=== PATIENT | female | born 1990 | race Caucasian/White ===

== ENCOUNTER 2019-02-06 20:40 | Emergency (ER) | payer MEDICAID, OTHER ==
[~2019-02-06] VITALS: Ht 154.9 cm; Wt 96.6 kg
--- OUTSIDE RECORDS SUMMARY | 2019-02-06 20:45 | XMS REPORT | CCD ---
Author Author TY JOHNSTON Organization Unknown Address [address] [place] [phone] Care Team Providers Care Sales And Marketing Engineer Name Role Phone MURRAY, SHELLEY DO Attphys MURRAYKATIASHELLEY DO Prisurg Vital Signs Unknown or Not Available. Allergies Allergy Code Allergy Type Reaction Status No Known Drug Allergies 0 No known drug allergies Active Procedures Procedure Code Procedure Type Date CX CHEST [address] 02/10/2016 [address]RE[address]EN 8937[address]63 SNOM[address] 02/10/[address] 02/10/2016 COMPREHENSIVE METABOLIC PANEL 528080205 SNOMED CT 2015 CBC W/ AUTO DIFF (RFLX MAN DIFF IF IND) 8089511 SNOMED CT 02/10/2016 ^CBC W/ MANUAL DIFF 69974853 SNOMED CT 02/10/2016 History of Immunizations Immunization Code Date Tdap 115 05/22/2015 Problems Unknown or Not Available. Results COMPREHENSIVE METABOLIC PANEL - Collect Date/Time: 02/10/2016 15:05 Test Name Code Test Result Test Units Test Ref Range GLUCOSE 2345-7 92 MG/DL L=70 H=100 SODIUM 2951-2 138 MEQ/L L=135 H=148 POTASSIUM 2823-3 3.2 MEQ/L L=3.5 H=5.3 CHLORIDE 2075-0 104 MEQ/L L=96 H=110 CO2 2028-9 23 MEQ/L L=22 H=29 BUN 3094-0 12 MG/DL L=8 H=22 CREATININE 2160-0 0.7 MG/DL L=0.6 H=1.6 SGOT/AST 1920-8 9 IU/L L=10 H=40 SGPT/ALT 1742-6 11 IU/L L=8 H=54 ALK PHOS 6768-6 92 IU/L L=35 H=115 TOTAL PROTEIN 2885-2 8.0 G/DL L=5.5 H=8.5 ALBUMIN 1751-7 4.7 G/DL L=3.1 H=5.4 TOTAL BILI 1975-2 0.3 MG/DL L=0.0 H=1.5 CALCIUM 77992-7 9.5 MG/DL L=8.2 H=10.6 AGE 25 yrs GFR NonAA 102 GFR AA 124 eGFR >60 N/A eGFR AA* >60 N/A LIPASE - Collect Date/Time: 02/10/2016 15:05 Test Name Code Test Result Test Units Test Ref Range LIPASE 3040-3 11 U/L L=8 H=78 CBC W/ AUTO DIFF (RFLX MAN DIFF IF IND) - Collect Date/Time: 02/10/2016 15:05 Test Name Code Test Result Test Units Test Ref Range WBC 56585-3 13.8 TH/CMM L=4.5 H=10.8 RBC 789-8 4.84 ML/CMM L=4.20 H=5.40 HGB 718-7 11.1 G/DL L=12.0 H=16.0 HCT 4544-3 37.1 % L=37.0 H=47.0 MCV 77 FL L=81 H=99 MCH 22.9 PG L=27.0 H=33.0 MCHC 29.9 G/DL L=31.0 H=36.0 RDW SD 43 FL L=36 H=50 RDW CV 15.8 % L=0.0 H=14.8 MPV 10.6 FL L=9.3 H=12.5 PLT 777-3 175 TH/CMM L=130 H=440 NRBC# 0.00 TH/CMM L=0.00 H=0.00 NRBC% 0.0 /100WBC L=0.0 H=2.0 %NEUT 87.9 % %LYMP 5.5 % %MONO 5.4 % %EOS 0.4 % %BASO 0.4 % #NEUT 12.18 TH/CMM L=2.10 H=8.20 #LYMP 0.76 TH/CMM L=0.90 H=5.20 #MONO 0.74 TH/CMM L=0.16 H=1.00 #EOS 0.05 TH/CMM L=0.00 H=0.80 #BASO 0.05 TH/CMM L=0.00 H=0.20 SEGS 84 % BANDS 3 % LYMPHS 8 % MONOS 5 % MANUAL DIFF SEE BELOW N/A STREP SCREEN - Collect Date/Time: 02/10/2016 15:05 Test Name Code Test Result Test Units Test Ref Range STREP SCREEN 6556-5 POSITIVE N/A NORMAL: NEGATIVE Active Medications Medication Code Dose Units Frequency Route Modification Start Date/Time Vitamins Plus 1MG-27MG Oral Tablet 4413938 1 EACH DAILY ORAL 05/22/2015 08:16 Prescription Detail 1 EACH ORAL DAILY Zantac 150MG Oral Tablet 203050 150 MILLIGRAMS EVERY 12 HOURS ORAL 05/22/2015 08:16 Prescription Detail 150 MILLIGRAMS ORAL EVERY 12 HOURS Medications Administered During Visit Unknown or Not Available. Encounters Encounter Diagnosis Diagnosis Code Start Date Streptococcal sore throat [id number] 02/10/2016 Social History Smoking Status Code Start Date End Date Never smoker [id number] Patient Decision Aids Unknown or Not Available. Discharge Instructions You were admitted to [facility] on 02/10/2016 14:25 with a principal diagnosis of Streptococcal pharyngitis You had the following tests done: CBC W/ AUTO DIFF (RFLX MAN DIFF IF IND) COMPREHENSIVE METABOLIC PANEL LIPASE STREP SCREEN You were discharged from [facility] on 02/10/2016 16:53 Should you have any questions prior to discharge, please contact a member of your healthcare team. If you have left the hospital and have any questions, please contact your primary care physician. Chief Complaint and Reason For Visit Chief Complaint Date of Onset ABDOMINAL PAIN SIDE PAIN Function Status Unknown or Not Available. Plan of Care Unknown or Not Available. Referral/Transition of Care Unknown or Not Available.
--- OUTSIDE RECORDS SUMMARY | 2019-02-06 20:45 | XMS REPORT | CCD ---
Author Author NAKUL ACEVES Unknown Address [address] [place] [phone] Care Team Providers Care Service Unit Operator Oil Well Name Role Phone RAND ER, NAOMI DO Attphys COURTLAND ER, NAOMI DO Prisurg Vital Signs Unknown or Not Available. Allergies Allergy Code Allergy Type Reaction Status No Known Drug Allergies 0 No known drug allergies Active Procedures Procedure Code Procedure Type Date US OB COMP<14 WK SINGLE OR FIRST 204678416 SNOMED CT 02/17 BETA HCG QUANTITATIVE 574859169 SNOMED CT 02/18/2016 COMPREHENSIVE METABOLIC PANEL 341340576 SNOMED CT 2015 CBC W/ AUTO DIFF (RFLX MAN DIFF IF IND) 7855965 SNOMED CT 02/18/2016 UA W/MICRO C&S IF IND 394889919 SNOMED CT 02/18/2016 US OB TRANSVAGINAL 071304185 SNOMED CT 02/18/2016 ^CBC W/AUTO DIFF 3902733 SNOMED CT 02/18/2016 History of Immunizations Immunization Code Date Tdap 115 05/22/2015 Problems Unknown or Not Available. Results BETA HCG QUANTITATIVE - Collect Date/Time: 02/18/2016 18:30 Test Name Code Test Result Test Units Test Ref Range BETA HCG QUANT 60621-1 96822 MIU/ML COMPREHENSIVE METABOLIC PANEL - Collect Date/Time: 02/18/2016 18:30 Test Name Code Test Result Test Units Test Ref Range GLUCOSE 2345-7 103 MG/DL L=70 H=100 SODIUM 2951-2 141 MEQ/L L=135 H=148 POTASSIUM 2823-3 3.1 MEQ/L L=3.5 H=5.3 CHLORIDE 2075-0 105 MEQ/L L=96 H=110 CO2 2028-9 26 MEQ/L L=22 H=29 BUN 3094-0 10 MG/DL L=8 H=22 CREATININE 2160-0 0.7 MG/DL L=0.6 H=1.6 SGOT/AST 1920-8 17 IU/L L=10 H=40 SGPT/ALT 1742-6 34 IU/L L=8 H=54 ALK PHOS 6768-6 79 IU/L L=35 H=115 TOTAL PROTEIN 2885-2 7.2 G/DL L=5.5 H=8.5 ALBUMIN 1751-7 4.3 G/DL L=3.1 H=5.4 TOTAL BILI 1975-2 0.3 MG/DL L=0.0 H=1.5 CALCIUM 07755-5 9.3 MG/DL L=8.2 H=10.6 AGE 25 yrs GFR NonAA 102 GFR AA 124 eGFR >60 N/A eGFR AA* >60 N/A CBC W/ AUTO DIFF (RFLX MAN DIFF IF IND) - Collect Date/Time: 02/18/2016 18:30 Test Name Code Test Result Test Units Test Ref Range WBC 22297-9 14.1 TH/CMM L=4.5 H=10.8 RBC 789-8 4.46 ML/CMM L=4.20 H=5.40 HGB 718-7 10.3 G/DL L=12.0 H=16.0 HCT 4544-3 34.8 % L=37.0 H=47.0 MCV 78 FL L=81 H=99 MCH 23.1 PG L=27.0 H=33.0 MCHC 29.6 G/DL L=31.0 H=36.0 RDW SD 46 FL L=36 H=50 RDW CV 16.5 % L=0.0 H=14.8 MPV 10.3 FL L=9.3 H=12.5 PLT 777-3 192 TH/CMM L=130 H=440 NRBC# 0.00 TH/CMM L=0.00 H=0.00 NRBC% 0.0 /100WBC L=0.0 H=2.0 %NEUT 84.4 % %LYMP 8.3 % %MONO 5.4 % %EOS 1.0 % %BASO 0.3 % #NEUT 11.89 TH/CMM L=2.10 H=8.20 #LYMP 1.17 TH/CMM L=0.90 H=5.20 #MONO 0.76 TH/CMM L=0.16 H=1.00 #EOS 0.14 TH/CMM L=0.00 H=0.80 #BASO 0.04 TH/CMM L=0.00 H=0.20 MANUAL DIFF NOT IND N/A UA W/MICRO C&S IF IND - Collect Date/Time: 02/18/2016 19:20 Test Name Code Test Result Test Units Test Ref Range COLOR YELLOW N/A NL: YELLOW APPEARANCE CLEAR N/A NL: CLEAR SPEC GRAV 1.020 N/A NL: 1.002 - 1.022 pH 8.5 N/A NL: 5 - 9 PROTEIN 30 N/A NL: NEGATIVE mg/dl GLUCOSE NEGATIVE N/A NL: NEGATIVE mg/dl KETONE NEGATIVE N/A NL: NEGATIVE mg/dl BILIRUBIN NEGATIVE N/A NL: NEGATIVE BLOOD LARGE N/A NL: NEGATIVE NITRITE NEGATIVE N/A NL: NEGATIVE LEUK SCREEN NEGATIVE N/A NL: NEGATIVE WBC/HPF NEGATIVE N/A NL: NEGATIVE RBC/HPF 10-20 N/A NL: NEGATIVE CASTS/LPF NEGATIVE N/A NL: NEGATIVE CRYSTALS 2++ AMORPHOUS N/A NL: NEGATIVE MUCOUS THRDS NEGATIVE N/A NL: NEGATIVE BACTERIA NEGATIVE N/A NL: NEGATIVE EPITH CELLS 1+ SQUAMOUS N/A NL: NEGATIVE TRICHOMONAS NEGATIVE N/A NL: NEGATIVE YEAST NEGATIVE N/A NL: NEGATIVE CULT SET UP? NO N/A Active Medications Medication Code Dose Units Frequency Route Modification Start Date/Time Vitamins Plus 1MG-27MG Oral Tablet 7625272 1 EACH DAILY ORAL 05/22/2015 08:16 Prescription Detail 1 EACH ORAL DAILY Zantac 150MG Oral Tablet 575642 150 MILLIGRAMS EVERY 12 HOURS ORAL 05/22/2015 08:16 Prescription Detail 150 MILLIGRAMS ORAL EVERY 12 HOURS Medications Administered During Visit Unknown or Not Available. Encounters Encounter Diagnosis Diagnosis Code Start Date Antepartum hemorrhage [id number] 02/18/2016 Social History Smoking Status Code Start Date End Date Never smoker 443321293 Patient Decision Aids Unknown or Not Available. Discharge Instructions You were admitted to [facility] on 02/18/2016 18:03 with a principal diagnosis of Antepartum hemorrhage, unspecified, first trimester You had the following tests done: BETA HCG QUANTITATIVE CBC W/ AUTO DIFF (RFLX MAN DIFF IF IND) COMPREHENSIVE METABOLIC PANEL UA W/MICRO C&S IF IND You were discharged from [facility] on 02/18/2016 21:43 Should you have any questions prior to discharge, please contact a member of your healthcare team. If you have left the hospital and have any questions, please contact your primary care physician. Chief Complaint and Reason For Visit Chief Complaint Date of Onset VAGINAL BLEEDING AFTER FALL LESS THAN 12 WKS Function Status Unknown or Not Available. Plan of Care Unknown or Not Available. Referral/Transition of Care Unknown or Not Available.
--- OUTSIDE RECORDS SUMMARY | 2019-02-06 20:45 | XMS REPORT | Continuity of Care Document ---
Author Organization Unknown Address Unknown Allergies There is no data. Medications There is no data. Problems There is no data. Procedures There is no data. Results There is no data. Encounters ACCT No. Visit Date/Time Discharge Status Pt. Type Provider Facility Loc./Unit Complaint [id number] 01/17/2019 08:58:17 01/17/2019 23:59:59 CLS Outpatient Wallace Horton [id number] 01/12/2019 14:03:26 01/12/2019 23:59:59 CLS Outpatient Armando Pride [id number] 01/06/2019 11:17:43 01/06/2019 23:59:59 CLS Outpatient Armando Pride [id number] 12/29/2018 15:36:27 12/29/2018 23:59:59 CLS Outpatient Wallace Horton [id number] 12/29/2018 12:17:15 12/29/2018 23:59:59 CLS Outpatient Tosha Cook [id number] 12/21/2018 10:25:28 12/21/2018 23:59:59 CLS Outpatient Jeferson Timmons [id number] 12/21/2018 10:24:06 12/21/2018 23:59:59 CLS Outpatient Armando Pride [id number] 11/24/2018 12:02:57 11/24/2018 23:59:59 CLS Outpatient Armando Pride [id number] 11/10/2018 11:33:22 11/10/2018 23:59:59 CLS Outpatient Armando Pride [id number] 10/27/2018 09:58:52 10/27/2018 23:59:59 CLS Outpatient Armando Pride [id number] 10/14/2018 11:46:22 10/14/2018 23:59:59 CLS Outpatient Tosha Cook [id number] 09/23/2018 11:44:24 09/23/2018 23:59:59 CLS Outpatient Armando Pride [id number] 08/26/2018 11:41:34 08/26/2018 23:59:59 CLS Outpatient Armando Pride [id number] 07/22/2018 11:52:40 07/22/2018 23:59:59 CLS Outpatient Armando Pride [id number] 06/17/2018 12:03:14 06/17/2018 23:59:59 CLS Outpatient Tosha Cook [id number] 07/22/2017 16:34:39 07/22/2017 23:59:59 CLS Outpatient Ayan Rocha [id number] 07/16/2015 14:28:08 07/16/2015 23:59:59 CLS Outpatient Tosha Cook [id number] 07/12/2015 15:46:39 07/12/2015 23:59:59 CLS Outpatient Ayan Rocha [id number] 07/07/2015 13:50:33 07/07/2015 23:59:59 CLS Outpatient JAYLYN WILCOX [id number] 07/01/2015 14:32:57 07/01/2015 23:59:59 CLS Outpatient Dale Francisco [id number] 05/29/2015 15:02:16 05/29/2015 23:59:59 CLS Outpatient JAYLYN WILCOX [id number] 05/20/2015 22:33:24 05/20/2015 23:59:59 CLS Outpatient Donna Serna [id number] 05/20/2015 22:28:06 05/20/2015 23:59:59 CLS Outpatient Donna Serna [id number] 05/20/2015 22:26:45 05/20/2015 23:59:59 CLS Outpatient Donna Serna [id number] 05/20/2015 22:23:00 05/20/2015 23:59:59 CLS Outpatient Donna Serna [id number] 05/20/2015 22:13:16 05/20/2015 23:59:59 CLS Outpatient Spencer Castaneda [id number] 05/20/2015 22:04:14 05/20/2015 23:59:59 CLS Outpatient Spencer Castaneda [id number] 05/20/2015 21:55:43 05/20/2015 23:59:59 CLS Outpatient Spencer Castaneda [id number] 05/20/2015 21:35:25 05/20/2015 23:59:59 CLS Outpatient Spencer Castaneda [id number] 02/07/2015 14:16:25 02/07/2015 23:59:59 CLS Outpatient Donna Serna [id number] 01/10/2015 15:00:07 01/10/2015 23:59:59 CLS Outpatient Spencer Castaneda
[2019-02-06] MEDS ORDERED: SERT100T8 PO (20:55)
--- NOTE | 2019-02-06 21:26 | NUR ---
PT BROUGHT TO ROOM 9, PT ASKED TO PROVIDE URINE SAMPLE. UPON USING THE RESTROOM PT STATES SHE HAS SATURATED ANOTHER PAD, THIS MAKING FIVE TOTAL IN THE LAST THREE HOURS. PROVIDED NEW PADS AND DISPOSABLE UNDERWEAR. Addendum: 02/07/19 at 0115 by [id number] PT BROUGHT TO ROOM 9, PT ASKED TO PROVIDE URINE SAMPLE. UPON USING THE RESTROOM PT STATES SHE HAS SATURATED ANOTHER PAD, THIS MAKING FIVE TOTAL IN THE LAST THREE HOURS. PROVIDED NEW PADS AND DISPOSABLE UNDERWEAR. PROVIDER NOTIFIED
[2019-02-06] MEDS ORDERED: NS IV 1000 ML 1,000 ML IV ONE (21:38)
[2019-02-06 21:51] LABS: BASOPHILS % (AUTO) 0 % (0-10); EOSINOPHILS # (AUTO) 0.1 10^3/uL (0.0-0.3); EOSINOPHILS % (AUTO) 1 % (0-10); HEMATOCRIT 35 % (35-52); HEMOGLOBIN 10.7 G/DL (11.5-16.0); LYMPHOCYTES # (AUTO) 1.8 X 10^3 (1.0-4.0); LYMPHOCYTES % (AUTO) 23 % (12-44); MEAN CORPUSCULAR HEMOGLOBIN 23 PG (25-34); MEAN CORPUSCULAR HGB CONC 31 G/DL (32-36); MEAN CORPUSCULAR VOLUME 77 FL (80-99); MONOCYTES # (AUTO) 0.5 X 10^3 (0.0-1.0); MONOCYTES % (AUTO) 6 % (0-12); NEUTROPHILS # (AUTO) 5.7 X 10^3 (1.8-7.8); NEUTROPHILS % (AUTO) 70 % (42-75); PLATELET COUNT 287 10^3/uL (130-400); RED CELL DISTRIBUTION WIDTH 17.4 % (10.0-14.5); WHITE BLOOD COUNT 8.1 10^3/uL (4.3-11.0)
[2019-02-06 21:52] LABS: BILIRUBIN,URINE NEGATIVE (NEGATIVE); COLOR,URINE RED; GLUCOSE, URINE (UA) NEGATIVE (NEGATIVE); KETONES,URINE 1+ (NEGATIVE); LEUKOCYTE ESTERASE ,URINE 2+ (NEGATIVE); NITRITE,URINE POSITIVE (NEGATIVE); PH,URINE 6 (5-9); PROTEIN,URINE 3+ (NEGATIVE); UROBILINOGEN,URINE 1 MG/DL (NORMAL)
[2019-02-06 22:00] LABS: BACTERIA,URINE MODERATE /HPF; CLARITY,URINE BLOODY; RBC,URINE TNTC /HPF; WBC,URINE 25-50 /HPF
[2019-02-06 22:09] LABS: ALANINE AMINOTRANSFERASE 21 U/L (0-55); ALBUMIN 4.7 GM/DL (3.2-4.5); ALKALINE PHOSPHATASE 108 U/L (40-136); BILIRUBIN,TOTAL 0.2 MG/DL (0.1-1.0); BUN/CREATININE RATIO 27; CALCIUM 9.8 MG/DL (8.5-10.1); CARBON DIOXIDE 23 MMOL/L (21-32); CHLORIDE 104 MMOL/L (98-107); CREATININE SERUM 0.81 MG/DL (0.60-1.30); GFR ESTIMATED > 60; GLUCOSE 75 MG/DL (70-105); POTASSIUM 3.8 MMOL/L (3.6-5.0); SODIUM 140 MMOL/L (135-145); TOTAL PROTEIN 8.4 GM/DL (6.4-8.2)
[2019-02-06] MEDS ORDERED: cefTRIAXone FOR IV USE 1,000 MG in WATER (STERILE) FOR INJECTION 10 ML IV ONE (22:15)
[2019-02-06] MEDS ORDERED: CEPH-507 PO (23:09)
--- NOTE | 2019-02-06 23:09 | ED GU-Female ---
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 PATIENT STATES SHE DELIVERED A BABY VIA ON DECEMBER 22 AT [facility] IN [place]. PATIENT HAS HAD BLEEDING SINCE DELIVERY WITH WORSENING BLEEDING AND BLOOD CLOTS PRESENT. PATIENT STATES SHE HAS SATURATED 4 PADS IN LESS THAN TWO HOURS. PATIENT COMPLAINS OF SHARP PAIN TO ABDOMEN Nursing Sepsis Screen: No Definite Risk Source: patient Exam Limitations: no limitations Allergies and Home Medications Allergies Coded Allergies: No Known Drug Allergies (Unverified , 02/06/19) Home Medications Sertraline HCl 100 Mg Tablet, 100 MG PO DAILY, (Reported) Past Vnwehvr-Cbljql-Mwaeta Hx Patient Social History Alcohol Use: Denies Use Recreational Drug Use: No Smoking Status: Never a Smoker 2nd Hand Smoke Exposure: No Recent Foreign Travel: No Contact w/Someone Who Travel: No Recent Infectious Disease Expo: No Recent Hopitalizations: Yes (DECEMBER 22- ) Seasonal Allergies Seasonal Allergies: No Past Medical History Surgeries: Yes (3 C-SECTIONS) Section Respiratory: No Cardiac: No Neurological: No : No UTI-Chronic Gastrointestinal: No Musculoskeletal: No Endocrine: No HEENT: No Cancer: No Psychosocial: No Blood Disorders: No Adverse Reaction/Blood Tranf: No Physical Exam Vital Signs Vital Signs - First Documented 02/06/19 20:46 Temp 98.9 Pulse 86 Resp 18 B/P (MAP) 109/63 (78) O2 Delivery Room Air Capillary Refill : Less Than 3 Seconds Height, Weight, BMI Height: 5'1.00" Weight: 213lbs. oz. 96.059640gi; BMI Method:Actual Progress/Results/Core Measures Suspected Sepsis Recent Fever Within 48 Hours: No Infection Criteria Present: None New/Unexplained Altered Menta: No Sepsis Screen: No Definite Risk SIRS Temperature:98.9 Pulse: 86 Respiratory Rate: 18 Laboratory Tests 02/06/19 21:39: White Blood Count 8.1 Blood Pressure 109 /63 Mean: 78 Laboratory Tests 02/06/19 21:39: Creatinine 0.81, Platelet Count 287, Total Bilirubin 0.2 Results/Orders Lab Results Laboratory Tests Test 02/06/19 21:30 02/06/19 21:39 Range/Units Urine Color RED H Urine Clarity BLOODY H Urine pH 6 5-9 Urine Specific [place] 1.020 1.016-1.022 Urine Protein 3+ H NEGATIVE Urine Glucose (UA) NEGATIVE NEGATIVE Urine Ketones 1+ H NEGATIVE Urine Nitrite POSITIVE H NEGATIVE Urine Bilirubin NEGATIVE NEGATIVE Urine Urobilinogen 1 NORMAL MG/DL Urine Leukocyte Esterase 2+ H NEGATIVE Urine RBC (Auto) 5+ H NEGATIVE Urine RBC TNTC H /HPF Urine WBC 25-50 H /HPF Urine Squamous Epithelial Cells 5-10 /HPF Urine Crystals NONE /LPF Urine Bacteria MODERATE H /HPF Urine Casts NONE /LPF Urine Mucus NEGATIVE /LPF Urine Culture Indicated YES White Blood Count 8.1 4.3-11.0 10^3/uL Red Blood Count 4.59 4.35-5.85 10^6/uL Hemoglobin 10.7 L 11.5-16.0 G/DL Hematocrit 35 35-52 % Mean Corpuscular Volume 77 L 80-99 FL Mean Corpuscular Hemoglobin 23 L 25-34 PG Mean Corpuscular Hemoglobin Concent 31 L 32-36 G/DL Red Cell Distribution Width 17.4 H 10.0-14.5 % Platelet Count 287 130-400 10^3/uL Mean Platelet Volume 11.0 H 7.4-10.4 FL Neutrophils (%) (Auto) 70 42-75 % Lymphocytes (%) (Auto) 23 12-44 % Monocytes (%) (Auto) 6 0-12 % Eosinophils (%) (Auto) 1 0-10 % Basophils (%) (Auto) 0 0-10 % Neutrophils # (Auto) 5.7 1.8-7.8 X 10^3 Lymphocytes # (Auto) 1.8 1.0-4.0 X 10^3 Monocytes # (Auto) 0.5 0.0-1.0 X 10^3 Eosinophils # (Auto) 0.1 0.0-0.3 10^3/uL Basophils # (Auto) 0.0 0.0-0.1 10^3/uL Sodium Level 140 135-145 MMOL/L Potassium Level 3.8 3.6-5.0 MMOL/L Chloride Level 104 98-107 MMOL/L Carbon Dioxide Level 23 21-32 MMOL/L Anion Gap 13 5-14 MMOL/L Blood Urea Nitrogen 22 H 7-18 MG/DL Creatinine 0.81 0.60-1.30 MG/DL Estimat Glomerular Filtration Rate > 60 BUN/Creatinine Ratio 27 Glucose Level 75 70-105 MG/DL Calcium Level 9.8 8.5-10.1 MG/DL Corrected Calcium 8.5-10.1 MG/DL Total Bilirubin 0.2 0.1-1.0 MG/DL Aspartate Amino Transf (AST/SGOT) 17 5-34 U/L Alanine Aminotransferase (ALT/SGPT) 21 0-55 U/L Alkaline Phosphatase 108 40-136 U/L C-Reactive Protein High Sensitivity 0.50 0.00-0.50 MG/DL Total Protein 8.4 H 6.4-8.2 GM/DL Albumin 4.7 H 3.2-4.5 GM/DL My Orders Orders - NEL CHEEK MD Cbc With Automated Diff (02/06/19 20:59) Comprehensive Metabolic Panel (02/06/19 20:59) Hs C Reactive Protein (02/06/19 20:59) Ua Culture If Indicated (02/06/19 20:59) Type And Screen (02/06/19 20:59) Ed Iv/Invasive Line Start (02/06/19 21:38) Ns Iv 1000 Ml (Sodium Chloride 0.9%) (02/06/19 21:38) Urine Culture (02/06/19 21:30) Ceftriaxone For Iv Use (Rocephin For I (02/06/19 22:15) Medications Given in ED Current Medications Medications Dose Ordered Sig/Jonathan Route Start Time Stop Time Status Last Admin Dose Admin Ceftriaxone Sodium 1000 mg/ Sterile Water 10 ml @ 200 mls/hr ONCE ONCE IV 02/06/19 22:15 02/06/19 22:17 DC 02/06/19 22:42 200 MLS/HR Sodium Chloride 1,000 ml @ 0 mls/hr Q0M ONCE IV 02/06/19 21:38 02/06/19 21:39 DC 02/06/19 22:40 1,000 MLS/HR Vital Signs/I&O 02/06/19 20:46 Temp 98.9 Pulse 86 Resp 18 B/P (MAP) 109/63 (78) O2 Delivery Room Air Capillary Refill : Less Than 3 Seconds Blood Pressure Mean: 78 Departure Impression Primary Impression: Urinary tract infection Qualified Codes: N39.0 - Urinary tract infection, site not specified Additional Impression: Episode of heavy vaginal bleeding Disposition: HOME, SELF-CARE Condition: Improved Departure-Patient Inst. Decision time for Depature: 23:07 Referrals: OMAYRA GALDAMEZ NAIL FEEDER (PCP/Family) Primary Care Physician Patient Instructions: Urinary Tract Infection, Adult (DC) Add. Discharge Instructions: Return to care if you have worsening symptoms such as worsening shortness of breath, lightheadedness, pain, or bleeding. Otherwise contacted Dr. Cook's office first thing tomorrow morning to arrange follow-up for this week. If no sooner appointment is available, keep your appointment for Wednesday. Complete your antibiotic as prescribed. Review urine culture results with Dr. Cook at the appointment later this week. All discharge instructions reviewed with patient and/or family. Voiced understanding. Scripts Cephalexin (Keflex) 500 Mg Capsule 500 MG PO TID, #20 CAP Prov: NEL CHEEK MD 02/06/19 NEL CHEEK MD Feb 06, 2019 23:09
[2019-02-06 23:19] VITALS: BP 117/91
== END 2019-02-06 23:21 | disposition home or self-care (01) ==
LOC: ER 20:42
DX: N39.0 Urinary tract infection, site not specified (principal); N93.9 Abnormal uterine and vaginal bleeding, unspecified; Z98.890 Other specified postprocedural states; Z87.440 Personal history of urinary (tract) infections
CPT/HCPCS: 36415; 80053; 81000; 85025; 86141; 86850; 86870; 86900; 86901; 87088

== ENCOUNTER 2023-06-13 15:16 | Emergency (ER) | payer MEDICAID, OTHER ==
[~2023-06-13] VITALS: Ht 155 cm; Wt 122.0 kg
[~2023-06-13 15:16] MED LIST: CEPH-507 PO; SERT-414 PO
[2023-06-13] MEDS ORDERED: IBUPROFEN 800 MG TABLET PO STA (15:29)
--- NOTE | 2023-06-13 15:34 | ED Lower Extremity ---
General Chief Complaint: Lower Extremity Stated Complaint: PAIN RIGHT FOOT Nursing Triage Note: PT STATES SHE JUST WOKE UP A FEW DAYS AGO AND RT FOOT WAS HURTING, NO KNOWN CAUSE Source: patient Exam Limitations: no limitations History of Present Illness Date Seen by Provider: Jun 13, 2023 Time Seen by Provider: 15:22 Initial Comments Here with complaint of right foot pain that she states was really hurting this morning but apparently its been hurting over the last couple of days. There got a go to [facility] yesterday but there was not anybody to do x-rays so they came here today. She took Tylenol at about noon today and that does not help with the pain. Denies any known injury. On vital signs on arrival, patient was noted to be febrile. She is not sure why that is. Denies sore throat, runny nose, cough or breathing problems. She is unsure about COVID exposure Onset: other (Few days) Severity: moderate Pain/Injury Location: right foot Method of Injury: unknown Modifying Factors: Improves With Immobilization; Worse With Movement Allergies and Home Medications Allergies Coded Allergies: No Known Drug Allergies (Unverified , 02/06/19) Patient Home Medication List Home Medication List Reviewed: Yes Cephalexin (Keflex) 500 Mg Capsule, 500 MG PO TID Prescribed by: NEL PARSONS on 02/06/192308 Sertraline HCl (Sertraline HCl) 100 Mg Tablet, 100 MG PO DAILY, (Reported) Entered as Reported by: FRANK SHETTY on 02/06/192054 Review of Systems Constitutional: see HPI; No chills, No fever EENTM: No nose congestion, No throat pain Respiratory: No cough, No short of breath Cardiovascular: no symptoms reported Gastrointestinal: No diarrhea, No nausea, No vomiting Genitourinary: No dysuria Musculoskeletal: joint pain, muscle pain Skin: No change in color, No lesions Past Bhbgkjg-Rysrsf-Dcccag Hx Patient Social History Tobacco Use?: No Substance use?: No Alcohol Use?: No Seasonal Allergies Seasonal Allergies: No Past Medical History Surgeries: Yes (3 C-SECTIONS) Section Respiratory: No Cardiac: No Neurological: No UTI-Chronic Gastrointestinal: No Musculoskeletal: No Endocrine: No HEENT: No Cancer: No Psychosocial: Yes Depression Blood Disorders: No Adverse Reaction/Blood Tranf: No Family Medical History Reviewed Nursing Family Hx No Pertinent Family Hx Physical Exam Vital Signs Vital Signs - First Documented 06/13/23 15:23 Temp 38.0 Pulse 103 Resp 20 B/P (MAP) 132/61 (84) Pulse Ox 98 O2 Delivery Room Air Capillary Refill : Less Than 3 Seconds Height, Weight, BMI Height: 5'1.00" Weight: 213lbs. oz. 96.163972nh; 50.00 BMI Method:Actual General Appearance: WD/WN, no apparent distress HEENT: PERRL/EOMI, TMs normal, pharynx normal Neck: full range of motion, supple; No lymphadenopathy (R), No lymphadenopathy (L) Cardiovascular: no murmur, tachycardia Feet: right foot soft tissue tenderness (Tender in the area of the fourth and fifth metatarsal midshaft), right foot other (No obvious swelling or ecchymosis noted) Neurologic/Psychiatric: alert, oriented x 3 Skin: normal color, warm/dry Progress/Results/Core Measures Results/Orders Lab Results Laboratory Tests Test 06/13/23 15:27 Range/Units Influenza Type A (RT-PCR) Not Detected Not Detecte Influenza Type B (RT-PCR) Not Detected Not Detecte SARS-CoV-2 RNA (RT-PCR) Not Detected Not Detecte My Orders Orders - KEVIN DOHERTY MD Influenza A And B By Pcr (06/13/23 15:26) Foot, Right, 3 View (06/13/23 15:26) Covid 19 Inhouse Test (06/13/23 15:26) Ibuprofen Tablet (Ibuprofen Tablet) (06/13/23 15:29) Vital Signs/I&O 06/13/23 06/13/23 15:23 15:33 Temp 38.0 38.0 Pulse 103 Resp 20 B/P (MAP) 132/61 (84) Pulse Ox 98 O2 Delivery Room Air Blood Pressure Mean: 84 Progress Progress Note : Progress Note Seen and evaluated. We will evaluate for COVID and influenza. X-ray right foot ordered. Ibuprofen 800 mg p.o. ordered. Monitor patient. 1600: No acute fracture noted on foot x-ray on my interpretation. Radiology agrees. COVID and influenza are negative. Discharged home with return precautions. Patient and family verbalized understanding of instructions and agreement with plan. Diagnostic Imaging Diagonstic Imaging: Xray Plain Films/CT/US/NM/MRI: other Departure Impression Primary Impression: Right foot strain Qualified Codes: S96.911A - Strain of unspecified muscle and tendon at ankle and foot level, right foot, initial encounter Additional Impression: Fever Qualified Codes: R50.9 - Fever, unspecified Disposition: 01 HOME, SELF-CARE Condition: Improved Departure-Patient Inst. Decision time for Depature: 16:03 Referrals: OMAYRA GALDAMEZ MARKETING RESEARCHER (PCP/Family) Primary Care Physician Patient Instructions: Fever, Adult ED, Muscle Strain ED Add. Discharge Instructions: All discharge instructions reviewed with patient and/or family. Voiced understanding. Good supporting shoes. You may take ibuprofen 600 mg every 8 hours as needed for pain. You may also take Tylenol/acetaminophen 1000 mg every 8 hours as needed for pain. You have a fever of unknown origin. Your COVID and influenza were negative. You may develop further respiratory or upper respiratory symptoms. Return if you are having persistent and uncontrolled fever, weakness, breathing problems, chest pain, nausea, vomiting or diarrhea or other concerns as needed. Follow-up with your doctor this week for recheck and further evaluation as needed. KEVIN DOHERTY MD Jun 13, 2023 15:34
--- NOTE | 2023-06-13 15:55 | Diagnostic Imaging Report ---
EXAMINATION: Right ankle radiograph. TECHNIQUE: AP, oblique, lateral views of the right ankle obtained. HISTORY: foot pain COMPARISON: None available. FINDINGS: No acute intracranial hemorrhage. No large vascular territory dubon-white loss. No intracranial mass, midline shift, or hydrocephalus. Dictated by: Dictated on workstation # [id number]
[2023-06-13 16:13] VITALS: BP 127/74
== END 2023-06-13 16:13 | disposition home or self-care (01) ==
LOC: EDUNIT# 15:16 → ER 15:20
DX: S96.911A Strain of unspecified muscle and tendon at ankle and foot level, right foot, initial encounter (principal); R50.9 Fever, unspecified; Z20.822 Contact with and (suspected) exposure to COVID-19; X58.XXXA Exposure to other specified factors, initial encounter
CPT/HCPCS: 73630; 87636; 99283